=== PATIENT | female | born 1965 | race Two or more races ===

== ENCOUNTER 2017-11-17 08:19 | Day surgery (SDC) | payer OTHER ==
[2017-11-16 13:04] VITALS: BMI 36.3
[2017-11-17] MEDS ORDERED: oxyCODONE HCL 5 MG TABLET PO PRN ×2 (08:51)
[2017-11-17] MEDS ORDERED: ONDANSETRON 4 MG/2 ML VIAL IVPUSH PRN (08:51)
[2017-11-17] MEDS ORDERED: LACTATED RINGERS SOLUTION 1,000 ML IV SCH (09:00)
[2017-11-17] MEDS ORDERED: MIDAZOLAM HCL 2 MG/2 ML SINGLE DOSE VIAL ONE (09:14)
[2017-11-17] MEDS ORDERED: PROPOFOL 20 ML ONE ×3 (09:15)
[2017-11-17] MEDS ORDERED: DEXAMETHASONE SOD PHOSPHATE 4 MG/1 ML VIAL ONE (09:44)
[2017-11-17] MEDS ORDERED: GLYCOPYRROLATE 0.2 MG/1 ML VIAL ONE (09:50)
[2017-11-17 10:33] VITALS: TEMP 97.8
[2017-11-17] MEDS ORDERED: KETOROLAC TROMETHAMINE 30 MG/1 ML VIAL ONE (10:59)
[2017-11-17 11:47] VITALS: BP 131/72; PULSE 73
--- NOTE | 2017-11-20 14:03 | PATH ---
Surgical Pathology Report Patient Name: DANIELLE WALDRON [facility]. Rec. #: [id number] /Age/Gender: 1965 (Age: 52) / F Account: [id number] Location: [facility] Taken: 11/17/2017 Received: 11/17/2017 Reported: 11/20/2017 Physicians: Koby Sanches DO Specimen(s) Received A: RIGHT VULVA 9'OCLOCK BIOPSY B: RIGHT VULVA 7'OCLOCK BIOPSY Clinical History Vulva pain Final Diagnosis A. VULVA, RIGHT, 9:00, BIOPSY: VULVAR SQUAMOUS MUCOSA WITH MILD SUPERFICIAL AND FOCAL PERIVASCULAR CHRONIC INFLAMMATORY INFILTRATE. B. VULVA, RIGHT, 7:00, BIOPSY: VULVAR SQUAMOUS MUCOSA WITHOUT SIGNIFICANT PATHOLOGIC FINDINGS. Comment: Suggest clinical correlation. Electronically Signed Shanon Saleem M.D. Gross Description A. Received in formalin labeled "right vulvar 9:00 biopsy," is a 0.8 cm greatest dimension brown, polypoid portion of skin. The specimen is submitted in toto in one cassette. B. Received in formalin labeled "right vulvar 7:00 biopsy," is a 1.7 x 0.1 x 0.1 cm avitia soft tissue fragment. The specimen is submitted in toto in one cassette. 11/17/201711/17/2017
--- NOTE | 2017-11-21 13:09 | OP ---
DATE OF OPERATION: DATE OF DICTATION: 11/21/2017 PREOPERATIVE DIAGNOSIS: Recurrent vulvar pruritus and pain. POSTOPERATIVE DIAGNOSIS: Recurrent vulvar pruritus and pain. PROCEDURES PERFORMED: 1. Examination under anesthesia. 2. Right vulvar biopsies at the 7 o'clock and 9 o'clock positions. SURGEON: Koby Sanches DO ANESTHESIA: General. INTRAVENOUS FLUIDS: 500 mL. ESTIMATED BLOOD LOSS: 20 mL. URINE OUTPUT: 50 mL. SPECIMEN: Right vulvar biopsy at the 7 o'clock position, as well as the 9 o'clock position. FINDINGS: Examination under anesthesia revealed an erythematous, edematous vulva at the 7 and 9 o'clock positions. INDICATIONS: A 52-year-old woman with recurrent vulvar pruritus, unresponsive to estrogen replacement therapy and nonsteroidal therapy. Attempted biopsy in the office was unsuccessful. The patient could not tolerate the procedure due to pain. Therefore, the risks, benefits and alternatives of the procedure were discussed with the patient, with regard to general anesthesia. She understood the risks and the procedure and wished to proceed and signed the consent. DESCRIPTION OF PROCEDURE: The patient was taken to the operating room, where general anesthesia was administered without difficulty. She was placed in the dorsal lithotomy position with stirrups, and examination under anesthesia revealed the findings above. The patient was prepped and draped in the normal sterile fashion. The area of concern was isolated, grasped and punch biopsy was performed at the 7 o'clock position as well as the 9 o'clock position, followed by electrocautery, with excellent hemostasis. From the 9 o'clock position to the 7 o'clock position, hemostasis was completed with the application of a suture. At this point the decision was made to terminate the procedure. The patient tolerated the procedure well. Instrument and sponge counts were correct x2. The patient was awakened from general anesthesia and taken to the recovery room in stable condition. The patient is to go home after recovery from anesthesia and meeting all criteria of discharge. She was given instructions with regard to followup in 2 weeks. Koby Sanches DO /[id number]
== END 2017-11-17 11:40 | disposition home or self-care (01) ==
LOC: JASU-SURG 08:19
PROVIDERS: ATTEND Obstetrics & Gynecology
PROC: 0UBM0ZX Excision of Vulva, Open Approach, Diagnostic (ICD-10-PCS; principal; 2017-11-17 09:00)
DX: L29.2 Pruritus vulvae (principal); I10 Essential (primary) hypertension; J45.909 Unspecified asthma, uncomplicated; Z72.0 Tobacco use; D25.9 Leiomyoma of uterus, unspecified
CPT/HCPCS: 84703; 88305-TC; 94760